=== PATIENT | female | born 1970 | race Caucasian/White ===

== ENCOUNTER 2019-01-01 03:42 | Emergency (ER) | payer MEDICAID ==
[~2019-01-01] VITALS: Ht 157.5 cm; Wt 63.5 kg
[~2019-01-01 03:42] MED LIST: TEGRETOL
--- NOTE | 2019-01-01 03:46 | NUR ---
PT TAKEN TO BED 8
--- NOTE | 2019-01-01 03:46 | NUR ---
48 YO FEMALE C/O CHEST PAIN RADIATING TO L ARM SINCE LAST NIGHT. PT STATES PAIN WORSENS UPON INSPIRATION. PT DENIES PMH. DENIES ALLERGIES. PT STATES SHE TOOK TYLENOL X1 LAST NIGHT AND PAIN WAS UNRELIEVED. PT AAOX4 YI SPEAKING, AMBULATING @ BEDSIDE. LUNGS CLEAR EVEN UNLABORED BILATERALLY. S1 S2 HEARD. NO EDEMA NOTED. ABD SOFT NON DISTENDED. ACTIVE BS. VOIDING CLEAR YELLOW URINE. SKIN INTACT. WILL UPDATE ER MD. WILL CONTINUE TO MONITOR.
[2019-01-01 03:50] VITALS: BP 146/74
--- NOTE | 2019-01-01 03:59 | NUR ---
Dr. Domínguez evaluating patient at bedside.
[2019-01-01] MEDS ORDERED: NACL 0.9% 1,000 ML IV ONE (04:05)
[2019-01-01] MEDS ORDERED: ASPIRIN 81 MG TAB.CHEW PO ONE (04:05)
[2019-01-01] MEDS ORDERED: KETOROLAC 30 MG/ML VIAL IVP ONE (04:05)
[2019-01-01 04:32] LABS: ANION GAP 10.5 (8-16); CARBON DIOXIDE 29.2 mmol/L (21-32); CREATININE 0.5 mg/dL (0.6-1.3); POTASSIUM 3.7 mmol/L (3.5-5.1)
[2019-01-01 04:37] LABS: TOTAL BILIRUBIN 0.2 mg/dL (0.0-1.0)
[2019-01-01 04:38] LABS: PROTHROMBIN TIME 9.6 secs (10.8-13.4)
[2019-01-01 05:22] LABS: BASOPHILS % (AUTO) 0.8 % (0.0-2.0); EOSINOPHILS # (AUTO) 0.2 K/uL (0-0.4); EOSINOPHILS % (AUTO) 3.5 % (0.0-4.0); HEMATOCRIT 42.9 % (36-48); HEMOGLOBIN 14.2 g/dL (12.0-16.0); LYMPHOCYTES # (AUTO) 2.1 K/uL (2.5-16.5); LYMPHOCYTES % (AUTO) 37.2 % (20.5-51.1); MEAN CORPUSCULAR HEMOGLOBIN 30 pg (27-31); MEAN CORPUSCULAR HGB CONC 33 g/dL (33-37); MEAN CORPUSCULAR VOLUME 90.2 fL (80-94); MONOCYTES # (AUTO) 0.4 K/uL (0.8-1.0); MONOCYTES % (AUTO) 6.5 % (1.7-9.3); PLATELET COUNT (AUTO) 198 K/uL (140-450); RED BLOOD CELL COUNT(AUTO) 4.75 MIL/uL (4.20-5.40); RED CELL DISTRIBUTION WIDTH 12.5 % (11.6-13.7); WHITE BLOOD COUNT (AUTO) 5.7 K/uL (4.8-10.8)
[2019-01-01 05:30] VITALS: BP 134/76
== END 2019-01-01 05:30 | disposition home or self-care (01) ==
LOC: MED 03:42
DX: R07.89 Other chest pain (principal); R03.0 Elevated blood-pressure reading, without diagnosis of hypertension; E11.9 Type 2 diabetes mellitus without complications; Z79.899 Other long term (current) drug therapy
CPT/HCPCS: 36415; 71045; 80053; 81002; 81025; 84484; 85025; 85610; 85730; 93005; 96374; 99284; J1885; J7030; Q0092